=== PATIENT | male | born 1955 | race Caucasian/White ===

== ENCOUNTER → 2016-09-16 | Outpatient (CLI) | payer OTHER ==
[~2016-09-16] MED LIST: ASPIRIN325 PO; ATORVASTATIN CA80 MG PO; INDOMETHACIN 5050 M1 PO; MOBIC15 MG PO; NORCO 5-325 TA1 EACH PO
== END ==
LOC: MRI 07:04
DX: M25.511 Pain in right shoulder (principal)

== ENCOUNTER → 2017-05-23 | Outpatient (CLI) | payer BC, OTHER ==
--- NOTE | ~2017-05-23 | 2DMMODE ---
[facility] [place] [address] 2 D/M-MODE ECHOCARDIOGRAM Name: JOHNSTONROSARIO Room #: REG CL [facility]#: [id number] Admission: 05/23/17 Attend Phys: Clement Avelar MD Discharge: Date of : 55 Date of Service: 05/23/17 0948 Report #: [id number] THIS REPORT FOR: //name// APPROVED REPORT Study performed: 05/23/2017 09:04:16 EXAM: Comprehensive 2D, Doppler, and color-flow Echocardiogram Patient Location: Out-Patient Status: routine BSA: 2.23 HR: 70 bpm BP: 171/110 mmHg Rhythm: NSR Other Information Study Quality: Good Indications CAD. Hx: Stent, HLP 2D Dimensions RVDd: 35.98 mm LVEF(%): 58.51 (>50%) IVSd: 11.21 (7-11mm) LVOT Diam: 21.91 (18-24mm) LVDd: 50.01 mm PWd: 9.73 (7-11mm) Ascending Ao: 34.51 (22-36mm) LVDs: 34.48 (25-40mm) Aortic Root: 35.30 mm Mendoza's LVEF: 58.51 % Volumes Left Atrial Volume (Systole) Single Plane 4CH: 70.23 mL Single Plane 2CH: 69.59 mL LA ESV Index: 34.00 mL/m2 Aortic Valve AoV Peak Jason.: 1.42 m/s AO Peak Gr.: 8.02 mmHg LVOT Max P.94 mmHg LVOT Max V: 1.22 m/s VICKI Vmax: 3.24 cm2 Mitral Valve E/A Ratio: 0.8 MV Decel. Time: 152.17 ms [facility] [place] [address] 2 D/M-MODE ECHOCARDIOGRAM Name: ROSARIO JOHNSTON Room #: REG [facility]#: [id number] Admission: 05/23/17 Attend Phys: Clement Avelar MD Discharge: Date of : 55 Date of Service: 05/23/17 0948 Report #: [id number] MV E Max Jason.: 0.84 m/s MV A Jason.: 1.01 m/s MV PHT: 44.13 ms IVRT: 58.82 ms Pulmonary Valve PV Peak Jason.: 0.98 m/s PV Peak Gr.: 3.85 mmHg Pulmonary Vein P Vein S: 0.55 m/s P Vein A: 0.36 m/s P Vein D: 0.45 m/s P Vein A Dur.: 103.8 msec P Vein S/D Ratio: 1.22 Tricuspid Valve TR Peak Jason.: 2.10 m/s RAP Estimate: 5.00 mmHg TR Peak Gr.: 17.56 mmHg PA Pressure: 23.00 mmHg Left Ventricle The left ventricle is normal size. There is normal LV segmental wall motion. There is normal left ventricular wall thickness. Left ventricular systolic function is normal. LVEF is 60%. Mild diastolic dysfunction is present (impaired relaxation pattern). Right Ventricle The right ventricle is normal size. The right ventricular systolic function is normal. Atria Left atrium is at the upper limits of normal. The right atrium size is normal. Aortic Valve Aortic valve is minimally calcified. No aortic regurgitation is present. There is no aortic valvular stenosis. Mitral Valve The mitral valve is normal in structure. Mild to moderate mitral regurgitation. Tricuspid Valve The tricuspid valve is normal in structure. Mild tricuspid regurgitation. Estimated PAP is 20-25mmHg. Pulmonic Valve The pulmonary valve is normal in structure. Mild pulmonic [address] [address] 2 D/M-MODE ECHOCARDIOGRAM Name: ROSARIO JOHNSTON Room #: REG CL [facility]#: [id number] Admission: 05/23/17 Attend Phys: Clement Avelar MD Discharge: Date of : 55 Date of Service: 05/23/17 0948 Report #: [id number] regurgitation. Great Vessels The aortic root is normal in size. The ascending aorta is normal in size. IVC is normal in size and collapses >50% with inspiration. Pericardium There is no pericardial effusion. <Conclusion> The left ventricle is normal size. There is normal left ventricular wall thickness. Left ventricular systolic function is normal. Mild diastolic dysfunction is present (impaired relaxation pattern). The right ventricle is normal size. Left atrium is at the upper limits of normal. There is no aortic valvular stenosis. Mild to moderate mitral regurgitation. Mild tricuspid regurgitation. Estimated PAP is 20-25mmHg. <ELECTRONICALLY SIGNED> By: Clement Avelar MD 05/23/17947 7 7 Clement Avelar MD /INF
== END ==
LOC: CV 08:46
DX: I08.1 Rheumatic disorders of both mitral and tricuspid valves (principal); I25.10 Atherosclerotic heart disease of native coronary artery without angina pectoris; E78.5 Hyperlipidemia, unspecified; Z95.1 Presence of aortocoronary bypass graft